=== PATIENT | male | born 1970 | race Caucasian/White ===

== ENCOUNTER → 2020-12-12 00:10 | Outpatient (CLI) | payer OTHER, SELFPAY ==
[2020-12-12 17:39] LABS: SARS-CoV-2 RNA PCR Negative
== END ==
PROVIDERS: Visit Provider Internal Medicine Gastroenterology
DX: Z01.812 Encounter for preprocedural laboratory examination (principal); Z20.822 Contact with and (suspected) exposure to COVID-19
CPT/HCPCS: C9803; U0003; U0005

== ENCOUNTER 2020-12-16 00:29 | Day surgery (SDC) | payer OTHER, SELFPAY ==
[2020-11-04 12:37] VITALS: BMI 25.7
[2020-12-16 06:59] VITALS: BP 117/78; PULSE 73; RESP 18; TEMP 36.8; O2SAT 100
[2020-12-16] MEDS: LACTATED RINGERS 1,000 ML 150 ML IV CONT (07:06)
--- NOTE | 2020-12-16 07:51 | P.PNAN_ITS ---
Anes - Initial Pre Proc Eval Procedure: Operation Date: 12/16/20 08:15 Proposed Procedures p Screening Colonoscopy - Trent Franco MD Date/Time: 12/16/20 07:51 Surgeon: Trent Franco MD Pre Op Diagnosis: neoplasm screening Patient Data Age: 50 Gender: M Height: 1.75 m Weight: 82.7 kg Last Vital Signs Temp 36.8 C 12/16/20 06:59 Pulse 73 12/16/20 06:59 Resp 18 12/16/20 06:59 BP 117/78 12/16/20 06:59 Pulse Ox 100 12/16/20 06:59 Allergies Allergy/AdvReac Type Severity Reaction Status Date / Time No Known Allergies Allergy Verified 12/16/20 06:58 Home Medications Medication Instructions Recorded Confirmed Type No Home Medications 11/04/20 11/04/20 History Patient hx anesthesia problems: none Family hx anesthesia problems: none Results Review: All pre-operative results and documents have been reviewed as part of the pre-operative evaluation. [facility] Past Medical History Medical History (System 12/15/20 @ 09:52 by Kirsten Mathur) Diabetes mellitus out of control Mixed hyperlipidemia Type 2 diabetes mellitus without complications Surgical History Surgical History (System 12/15/20 @ 09:52 by Kirsten Mathur) History of appendectomy History of Nolan fundoplication S/P rotator cuff repair Family History Family History (System 12/15/20 @ 09:52 by Kirsten Mathur) Father Diabetes mellitus Social History Social History (System 12/15/20 @ 09:52 by Kirsten Mathur) Smoking status: Never smoker Second hand tobacco smoke exposure: No Substance use: never Living arrangements: with family Gender identity (if verbalized by the patient): Male Sexual Orientation (if Verbalized by the Patient): Straight or Heterosexual Spiritual care concerns: No Anes - Eval Final PreProcedure Day of Procedure 12/16/20 07:51 Patient weight: overweight Heart: regular rate and rhythm Lungs: clear to auscultation and normal air movement Airway: Mallampati scale class II Neurological: alert and oriented Last oral intake: >/= 8 hours ASA classification: III Emergent: no Anesthetic plan: proceed Anesthesia type and monitoring: general GIVS Results Review: All pre-operative results and documents have been reviewed as part of the pre-operative evaluation. Informed Consent: The patient's anesthetic plan and its attendant risks and benefits were discussed with the patient/family/POA. Questions were solicited and answers provided to the satisfaction of the patient/family/POA.
--- NOTE | 2020-12-16 08:06 | PM.HPGS ---
History of Present Illness History of Present Illness Consent: Risks, benefits, and alternatives have been discussed and questions answered. Patient agrees to proceed with procedure. Chief complaint: neoplasm screening Narrative: John Donis is a 50 year old male here for first screening colonoscopy Review of Systems Constitutional: Constitutional: Denies headache(s) and Denies weakness Eyes: Eyes: Denies blurry vision ENT: Reports Normal hearing present, Denies headache(s) and Denies neck pain Cardiovascular: Cardiovascular: Denies chest pain and Denies dyspnea Respiratory: Respiratory: Denies dyspnea Gastrointestinal: Gastrointestinal: Reports no additional gastrointestinal complaints Genitourinary: Genitourinary: Denies dysuria Musculoskeletal: Musculoskeletal: Denies neck pain Integumentary/Breasts: Skin/Breast: Denies dry skin Neurologic: Reports Normal hearing present, Denies headache(s) and Denies weakness Psychiatric: Psychiatric: Denies anxiety Endocrine: Endocrine: Denies change in body appearance Hematologic/Lymphatic: Hematologic/Lymphatic: Denies easy bleeding Allergic/Immunologic: Allergic/Immunologic: Denies urticaria [facility] Past Medical History Medical History (Updated 12/16/20 @ 08:06 by Trent Franco MD) Colon cancer screening Diabetes mellitus out of control Mixed hyperlipidemia Type 2 diabetes mellitus without complications Surgical History Surgical History (System 12/15/20 @ 09:52 by Kirsten Mathur) History of appendectomy History of Nolan fundoplication S/P rotator cuff repair Family History Family History (System 12/15/20 @ 09:52 by Kirsten Mathur) Father Diabetes mellitus Social History Social History (System 12/15/20 @ 09:52 by Kirsten Mathur) Smoking status: Never smoker Second hand tobacco smoke exposure: No Substance use: never Living arrangements: with family Gender identity (if verbalized by the patient): Male Sexual Orientation (if Verbalized by the Patient): Straight or Heterosexual Spiritual care concerns: No Meds Home Medications and Allergies Home Medications Medication Instructions Recorded Confirmed Type No Home Medications 11/04/20 11/04/20 History Allergies Allergy/AdvReac Type Severity Reaction Status Date / Time No Known Allergies Allergy Verified 12/16/20 06:58 Vital Signs Vital Signs - 24 hr 12/16/20 06:59 Temperature 98.2 F Pulse Rate 73 Respiratory Rate 18 Blood Pressure 117/78 Pulse Oximetry 100 Exam Const: General: comfortable and no acute distress HENMT: General nose exam: Normal nares present Eyes: General: appearance normal, both eyes and all related structures Neck: Neck: no JVD Resp: Auscultation: clear to auscultation bilaterally Cardio: Rate: regular rate Rhythm: regular rhythm GI: Inspection: non-distended GI Palp: Yes Soft to palpation Skin: General skin exam: normal color Neuro: General: gait normal Speech: normal speech Extrem: General: normal to inspection Psych: Mental Status: mental status grossly normal Assessment and Plan Assessment and plan (1) Colon cancer screening: Code(s): Z12.11 - Encounter for screening for malignant neoplasm of colon Status: Acute Assessment and Plan: colonoscopy
[2020-12-16 08:36] VITALS: BP 102/67; PULSE 71; RESP 23; O2SAT 100
[2020-12-16 08:46] VITALS: BP 103/65; PULSE 66; RESP 22; O2SAT 100
[2020-12-16 08:56] VITALS: BP 98/70; PULSE 61; RESP 20; O2SAT 100
== END 2020-12-16 09:07 | disposition home or self-care (01) ==
PROVIDERS: PCP Family Medicine; Visit Provider Internal Medicine Gastroenterology
PROC: 0DJD8ZZ Inspection of Lower Intestinal Tract, Via Natural or Artificial Opening Endoscopic (ICD-10-PCS; CPT 45378; principal; 2020-12-16 08:15)
DX: Z12.11 Encounter for screening for malignant neoplasm of colon (principal); K63.5 Polyp of colon; K64.8 Other hemorrhoids; E11.9 Type 2 diabetes mellitus without complications; E78.5 Hyperlipidemia, unspecified
CPT/HCPCS: 45380; 88305; C9803; J2704; J7120; U0003; U0005